=== PATIENT | male | born 1980 | race American Indian/Alaskan Native ===

== ENCOUNTER 2021-12-02 12:39 | Emergency (ER) | payer SELFPAY ==
[2021-12-02 13:32] VITALS: BP 141/91
--- NOTE | 2021-12-02 13:49 | Event Note ---
ED Screening Note Date of service: 12/02/21 Time: 13:43 ED Screening Note: 41-year-old male presents to the ED with complaint of a headache. States that he broke his 2-year sobriety alcohol on yesterday after having a difficult time. Patient states that he has become very agitated since he has been in the ED. patient denies any suicidal homicidal ideation. Patient do not wish to be seen at this facility and left out of the examination room stating that he will go to the [facility] where he is normally evaluated. Patient is alert oriented x4. No acute distress no. The patient has medical decision-making capacity to comprehend summation regarding current medical condition and appreciate the impact of the disease condition and the consequences of various options for treatment including foregoing treatment. Patient post ability to evaluate triage compare the risk and the benefit of each option communicate shortness and consistent down over time and able to make rational choices explained to patient for further testing treatment and evaluation I would like to perform during the current emergency department visit as well as any possible return if that could be accomplished in a timely manner I have outlined the possible risks of foregoing any of all these intervention and the patient understands and state the decision to leave may result in undesirable consequences such as or permanent disability and loss of current lifestyle even undesired consequences such as permanent disability or any loss of current lifestyle. This initial assessment/diagnostic orders/clinical plan/treatment(s) is/are subject to change based on patients health status, clinical progression and re- assessment by fellow clinical providers in the ED. Further treatment and workup at subsequent clinical providers discretion. Patient/guardian urged not to elope from the ED as their condition may be serious if not clinically assessed and managed. Initial orders include:
== END 2021-12-02 13:40 | disposition left against medical advice (07) ==
LOC: ED 12:39
DX: R51.9 Headache, unspecified (principal); F10.129 Alcohol abuse with intoxication, unspecified; Z53.21 Procedure and treatment not carried out due to patient leaving prior to being seen by health care provider